=== PATIENT | female | born 1980 | race Caucasian/White ===

== ENCOUNTER 2016-03-13 11:51 | Emergency (ER) | payer MEDICAID ==
[~2016-03-13] VITALS: Wt 76.0 kg
[~2016-03-13 11:51] MED LIST: PREN1TAB49 PO
[2016-03-13] MEDS ORDERED: ONDANSETRON (ODT) 4 MG TAB ODT STA (13:36)
[2016-03-13] MEDS ORDERED: FAMOTIDINE 20 MG TAB PO ONE (14:00)
--- NOTE | 2016-03-13 14:07 | ERD ---
ER Documentation Chief Complaint Date/Time DATE: 03/13/16 TIME: 14:05 Chief Complaint ABDOMINAL PAIN AND NAUSEA AND VOMITING AND NO DYSURIA HPI 35-year-old female otherwise healthy comes in with epigastric abdominal pain described as burning, nonradiating since last night. She reports nausea with nonbloody nonbilious emesis. She denies fevers or chills. No blood in her stools, no diarrhea. ROS All systems reviewed and are negative except as per history of present illness. Medications Home Meds Reported Medications Vits W-Ca,Fe,Fa(<1MG) () 1 Tab Tablet, 1 TAB PO DAILY 03/09/11 Allergies Allergies: Coded Allergies: No Known Allergy (Verified , 03/13/16) PMhx/Soc Medical and Surgical Hx: pt denies Medical Hx, pt denies Surgical Hx Hx Alcohol Use: No Hx Substance Use: No Hx Tobacco Use: No Smoking Status: Never smoker Physical Exam Vitals Vital Signs Date Time Temp Pulse Resp B/P Pulse Ox O2 Delivery O2 Flow Rate FiO2 03/13/16 12:12 98.5 73 20 114/76 98 Physical Exam General: Well-developed, well-nourished. The patient appears in no acute distress. HEENT: Head is normocephalic, atraumatic. No scleral icterus. Pupils are equal , round, and reactive. Oral mucous membranes are moist. No pharyngeal erythema. Neck: Supple. Nontender. Lungs: Clear to auscultation. Normal air movement. Heart: Regular rate and rhythm. S1 and S2 are normal. No murmurs, gallops, or rubs. Abdomen: Soft, mild tenderness in epigastric region, nondistended. Bowel sounds are normoactive. Extremities: No clubbing or cyanosis. Normal pulses. Moving extremities x 4. No weakness. Neurologic: Alert and oriented 3. No focal deficits. Skin: Normal turgor. No rash or lesions. Result Diagram: 03/13/16 1400 Results 24 hrs Laboratory Tests Test 03/13/16 14:00 Basophils # 0.010^3/ul Basophils % 0.3% Eosinophils # 0.110^3/ul Eosinophils % 0.5% Hematocrit 42.4% Hemoglobin 14.1g/dl Lymphocytes # 1.310^3/ul Lymphocytes % 11.2% Mean Corpuscular Hemoglobin 29.6pg Mean Corpuscular Hemoglobin Concent 33.2g/dl Mean Corpuscular Volume 89.0fl Mean Platelet Volume 8.6fl Monocytes # 0.410^3/ul Monocytes % 3.4% Neutrophils # 10.010^3/ul Neutrophils % 84.6% Nucleated Red Blood Cells # 0.010^3/ul Nucleated Red Blood Cells % 0.0/100WBC Platelet Count 95116^3/UL Red Blood Count 4.7610^6/ul Red Cell Distribution Width 13.1% Urine Bilirubin NEGATIVE Urine Clarity CLEAR Urine Color LT. YELLOW Urine Glucose NEGATIVE% Urine Hemoglobin NEGATIVE Urine Ketones NEGATIVE Urine Leukocyte Esterase NEGATIVE Urine Nitrite NEGATIVE Urine Specific Media 1.015 Urine Total Protein NEGATIVE Urine Urobilinogen 0.2 E.U./dL Urine pH 6.0 White Blood Count 11.810^3/ul Current Medications Medications (Trade) Dose Ordered Sig/Naomi Route PRN Reason Start Time Stop Time Status Last Admin Dose Admin Ondansetron HCl (Zofran Odt) 4 mg ONCE STAT ODT 03/13/16 13:36 03/13/16 13:37 DC 03/13/16 13:56 Famotidine (Pepcid) 20 mg ONCE ONCE PO 03/13/16 14:00 03/13/16 14:01 DC 03/13/16 13:56 PROCEDURE: US Abdomen. CLINICAL INDICATION: abdominal pain TECHNIQUE: Multiple real-time images were acquired of the patient's right upper quadrant abdomen and retroperitoneum utilizing a high resolution transducer. COMPARISON: None FINDINGS: The liver demonstrates normal echogenicity. The liver is normal in size and no focal solid lesions are seen. The liver measures 15.7 cm in length. The portal vein is patent with normal direction of flow. No intrahepatic biliary dilatation is seen. No gallstones are identified within the gallbladder. There is no pericholecystic fluid or gallbladder wall thickening. The common bile duct measures 4.5 mm in maximal dimension. The visualized portions of the pancreas are unremarkable. The tail of the pancreas is not seen. No free fluid is identified. The right kidney is normal in size, and demonstrate normal echogenicity and cortical thickness. The right kidney measures 11.5 cm in long dimension. There is no evidence of hydronephrosis. There are no kidney stones. RPTAT: AA IMPRESSION: Unremarkable right upper quadrant abdominal ultrasound. .Yakov Christianson MD, MD Date Time Electronically viewed and signed by .Yakov Christianson MD, on 03/13/2016 14: 40 .S/ Procedures/MDM ED course: Patient was given Pepcid and Zofran. MDM: 35-year-old female comes in with epigastric pain for the past 1 day VIVIANA SIMEON PA-C Mar 13, 2016 14:07
[2016-03-13 14:08] LABS: ADD UMIC NO; URINE BILIRUBIN (Dip) NEGATIVE (NEGATIVE); URINE BLOOD (Dip) NEGATIVE (NEGATIVE); URINE COLOR LT. YELLOW (YELLOW); URINE GLUCOSE (Dip) NEGATIVE (NEGATIVE); URINE KETONES (Dip) NEGATIVE (NEGATIVE); URINE LEUKOCYTE ESTERASE (Dip) NEGATIVE (NEGATIVE); URINE NITRITE (Dip) NEGATIVE (NEGATIVE); URINE TOTAL PROTEIN (Dip) NEGATIVE (NEGATIVE); URINE UROBILINOGEN (Dip) 0.2 E.U./dL (0.1-1.0)
[2016-03-13 14:23] LABS: BASOPHILS % 0.3 % (0.0-2.0); EOSINOPHILS # 0.1 10^3/ul (0.0-0.5); EOSINOPHILS % 0.5 % (0.0-7.0); HEMATOCRIT 42.4 % (37.0-47.0); HEMOGLOBIN 14.1 g/dl (12.0-16.0); LYMPHOCYTES # 1.3 10^3/ul (0.8-2.9); LYMPHOCYTES % 11.2 % (15.0-51.0); MEAN CORPUSCULAR HEMOGLOBIN 29.6 pg (29.0-33.0); MEAN CORPUSCULAR HGB CONC 33.2 g/dl (32.0-37.0); MEAN PLATELET VOLUME 8.6 fl (7.4-10.4); MONOCYTE # 0.4 10^3/ul (0.3-0.9); MONOCYTES % 3.4 % (0.0-11.0); NEUTROPHILS % 84.6 % (39.0-77.0); PLATELET COUNT 258 10^3/UL (140-440); RED BLOOD COUNT 4.76 10^6/ul (4.20-5.40); RED CELL DISTRIBUTION WIDTH 13.1 % (11.5-14.5); UNCORRECTED WBC 11.8 10^3/ul (4.8-10.8); WHITE BLOOD COUNT 11.8 10^3/ul (4.8-10.8)
[2016-03-13 14:29] LABS: CONDITION 1
[2016-03-13 14:37] LABS: ALBUMIN 4.6 g/dl (3.3-4.9)
[2016-03-13 14:38] LABS: POTASSIUM 4.1 mmol/L (3.5-5.1)
[2016-03-13 14:40] LABS: ALBUMIN/GLOBULIN RATIO 1.24; BILIRUBIN,INDIRECT 0.1 mg/dl (0-1.1); BILIRUBIN,TOTAL 0.1 mg/dl (0.2-1.3); CREATININE 0.54 mg/dl (0.44-1.00); TOTAL PROTEIN 8.3 g/dl (6.1-8.1)
--- NOTE | 2016-03-13 14:40 | RADRPT ---
PROCEDURE: US Abdomen. CLINICAL INDICATION: abdominal pain TECHNIQUE: Multiple real-time images were acquired of the patient's right upper quadrant abdomen a nd retroperitoneum utilizing a high resolution transducer. COMPARISON: None FINDINGS: The liver demonstrates normal echogenicity. The liver is normal in size and no focal solid lesions are seen. The liver measures 15.7 cm in length. The portal vein is patent with normal direction of f low. No intrahepatic biliary dilatation is seen. No gallstones are identified within the gallbladder. There is no pericholecystic fluid or gallbladd er wall thickening. The common bile duct measures 4.5 mm in maximal dimension. The visualized portions of the pancreas are unremarkable. The tail of the pancreas is not seen. No free fluid is identified. The right kidney is normal in size, and demonstrate normal echogenicity and cortical thickness. The right kidney measures 11.5 cm in long dimension. There is no evidence of hydronephrosis. There are no kidney stones. RPTAT: AA IMPRESSION: Unremarkable right upper quadrant abdominal ultrasound. .Yakov Christianson MD, Date Time Electronically viewed and signed by .Yakov Christianson MD, MD on 03/13/2016 14:40 .S/
[2016-03-13 14:41] LABS: CALCIUM 9.2 mg/dl (8.4-10.2)
[2016-03-13] MEDS ORDERED: RANI150T9 PO (15:06)
[2016-03-13] MEDS ORDERED: ONDA4TAB14 PO (15:06)
[2016-03-13 15:15] VITALS: BP 115/76; PULSE 78; RESP 20; TEMP 98.5
== END 2016-03-13 15:24 | disposition home or self-care (01) ==
LOC: FTE 11:51
DX: R10.11 Right upper quadrant pain (principal); R11.2 Nausea with vomiting, unspecified
CPT/HCPCS: 76705; 80053; 81003; 83690; 85025; Z7502; Z7610

== ENCOUNTER 2016-05-01 22:50 | Emergency (ER) | payer MEDICAID ==
[~2016-05-01] VITALS: Ht 162.6 cm; Wt 78.5 kg
[~2016-05-01 22:50] MED LIST changes: +ONDA4TAB14 PO; +RANI150T9 PO
[2016-05-01 22:54] VITALS: Ht 162.6 cm; Wt 78.5 kg
[2016-05-01] MEDS ORDERED: FLUT9.9S NASAL (23:06)
[2016-05-01] MEDS ORDERED: CETI10CA PO (23:06)
[2016-05-01] MEDS ORDERED: GUAI120S26 PO (23:06)
[2016-05-01] MEDS ORDERED: IBUP-1542 PO (23:06)
--- NOTE | 2016-05-01 23:10 | ERD ---
ER Documentation Chief Complaint Date/Time DATE: 05/01/16 TIME: 23:07 Chief Complaint bilateral ear pain x3 days HPI 35-year-old female presents to emergency department for complaints of bilateral ear pain for the last 2 days, cough and runny nose nasal congestion. Patient is actually having runny nose and nasal congestion for 2 weeks and sneezing. The last 2 days, patient has been having cough runny nose nasal congestion and bilateral ear pain, is congested. Patient's complete no ear pain, throbbing pain , pressure type pain, 4/10 scale, accompanied other symptoms. Patient does not have any fever or chills. Patient took ibuprofen for pain which helps. Patient denies any ear discharge. Patient denies any problems with hearing. Patient denies any sick contacts. ROS All systems reviewed and are negative except as per history of present illness. Medications Home Meds Active Scripts Miyjfnitqpb-Q-Wqqxsyakki Hb* (Guaifenesin* DM Syrup) 120 Ml Syrup, 10 ML PO Q4H Y for COUGH, #120 ML Prov:ED HENRY NP 05/01/16 Cetirizine Hcl* (Zyrtec*) 10 Mg Capsule, 10 MG PO DAILY, #30 TAB.CHEW Prov:ED HENRY NP 05/01/16 Fluticasone Propionate (Flonase Allergy Relief) 9.9 Ml [place].susp, 1 SPRAY NASAL BID, #1 BOTTLE TO EACH NOSTRIL Prov:ED HENRY NP 05/01/16 Ibuprofen* (Motrin*) 600 Mg Tab, 600 MG PO Q6H Y for PAIN AND OR ELEVATED TEMP, #30 TAB Prov:ED HENRY NP 05/01/16 Ondansetron (Ondansetron Odt) 4 Mg Tab.rapdis, 4 MG PO Q6H Y for NAUSEA AND/OR VOMITING, #10 TAB Prov:VIVIANA SIMEON PA-C 03/13/16 Ranitidine Hcl* (Zantac*) 150 Mg Tablet, 150 MG PO BID Y for EPIGASTRIC PAIN, # 30 TAB Prov:VIVIANA SIMEON PA-C 03/13/16 Reported Medications Vits W-Ca,Fe,Fa(<1MG) () 1 Tab Tablet, 1 TAB PO DAILY 03/09/11 Allergies Allergies: Coded Allergies: No Known Allergy (Verified , 03/13/16) PMhx/Soc Medical and Surgical Hx: pt denies Medical Hx, pt denies Surgical Hx History of Surgery: No Hx Neurological Disorder: No Hx Respiratory Disorders: No Hx Cardiac Disorders: No Hx Psychiatric Problems: No Hx Miscellaneous Medical Probl: No Hx Alcohol Use: No Hx Substance Use: No Hx Tobacco Use: No Smoking Status: Never smoker FmHx Family History: No coronary disease, No diabetes, No other Physical Exam Vitals Vital Signs Date Time Temp Pulse Resp B/P Pulse Ox O2 Delivery O2 Flow Rate FiO2 05/01/16 22:54 97.8 76 20 144/67 100 Physical Exam GENERAL: The patient is well developed and appropriate for usual state of health, in no apparent distress. HEENT: Atraumatic. Ears: Normal tympanic membrane, no erythema or bulging. No ear canal swelling. No ear discharge. Nose: Erythematous nasal turbinates with clear nasal discharge. Throat: oropharynx erythematous with postnasal drip. No tonsillar swelling or tonsillar exudates. No lymphadenopathy. CHEST: Clear to auscultation bilaterally. There are no rales, wheezes or rhonchi. HEART: Regular rate and rhythm. No murmurs, clicks, rubs or gallops. No S3 or S4. ABDOMEN: Soft, nontender and nondistended. Good bowel sounds. No rebound or guarding. No gross peritonitis. No gross organomegaly or masses. No Dang sign or McBurney point tenderness. BACK: No midline or flank tenderness. EXTREMITIES: Equal pulses bilaterally. There is no peripheral clubbing, cyanosis or edema. No focal swelling or erythema. Full range of motion. Grossly neurovascularly intact. NEURO: Alert and oriented. Cranial nerves 2-12 intact. Motor strength in all 4 extremities with 5/5 strength. Sensation grossly intact. Normal speech and gait. SKIN: There is no apparent rash or petechia. The skin is warm and dry. HEMATOLOGIC AND LYMPHATIC: There is no evidence of excessive bruising or lymphedema. No gross cervical, axillary, or inguinal lymphadenopathy. Procedures/MDM Medical Decision Making: Patient symptoms are most likely consistent with upper respiratory tract infection, which viral in origin. Patient was slightly also has allergic rhinitis from having nasal congestion and sneezing for the last 2 weeks which made her prone to URI. There is low suspicion for Pneumonia at this time since patients lungs sounds are clear, patient O2 saturation is normal and patient doesnt show any respiratory distress. Radiology exam is not indicated at this time. There is low suspicion for other cardiopulmonary emergencies at this time such as CHF, Pulmonary Embolism, Pneumothorax, Aortic Aneurysm or any other cardiopulmonary emergencies at this time. There is low suspicion for sepsis. Patient appears well and is hemodynamically stable. Patient does not have any fever. Disposition: Home. Condition: Stable Prescriptions: Zyrtec, Flonase, ibuprofen guaifenesin DM Instructions: Patient is advised to take medications as prescribed. Patient is advised to rest. Patient advised to increase fluid intake, do humidifier at home and if possible, do salt water gargles. Patient is advised that if symptoms are worse, shortness of breath, uncontrolled fever, stridor, vomiting, worst signs and symptoms to return to emergency department immediately. Otherwise, patient is advised to follow up with primary doctor in 5-7 days. Departure Diagnosis: Primary Impression: URI (upper respiratory infection) URI type: unspecified viral URI Qualified Code: J06.9 - Viral upper respiratory tract infection Additional Impression: Allergic rhinitis Allergic rhinitis seasonality: unspecified seasonality Allergic rhinitis trigger: unspecified Qualified Code: J30.9 - Allergic rhinitis, unspecified allergic rhinitis trigger, unspecified rhinitis seasonality Condition: Stable Patient Instructions: Allergic Rhinitis, Uri, Viral, No Abx (Adult) ED HENRY NP May 01, 2016 23:10
== END 2016-05-01 23:50 | disposition home or self-care (01) ==
LOC: FTE 22:50
DX: J06.9 Acute upper respiratory infection, unspecified (principal); J30.9 Allergic rhinitis, unspecified
CPT/HCPCS: 99283